=== PATIENT | female | born 1975 | race African-American/Black ===

== ENCOUNTER 2018-10-20 20:19 | Emergency (ER) | payer SELFPAY ==
[~2018-10-20] VITALS: Ht 165.1 cm; Wt 99.8 kg
[2018-10-20 20:22] VITALS: BP 166/90
[2018-10-20] MEDS ORDERED: LORAZEPAM INJ 2 MG/ML VIAL ONE (20:38)
[2018-10-20] MEDS ORDERED: LORAZEPAM INJ 2 MG/ML VIAL IM ONE (21:00)
[2018-10-20] MEDS ORDERED: ONDANSETRON 4 MG TAB.RAPDIS ONE (22:52)
[2018-10-20] MEDS ORDERED: ONDANSETRON 4 MG TAB.RAPDIS SL ONE ×2 (23:00)
== END 2018-10-20 23:14 | disposition home or self-care (01) ==
LOC: ER 20:23
DX: F12.929 Cannabis use, unspecified with intoxication, unspecified (principal); F41.9 Anxiety disorder, unspecified; Z60.2 Problems related to living alone
CPT/HCPCS: 96372; 99283; J2060; Q0162